=== PATIENT | female | born 1950 | race Caucasian/White ===

== ENCOUNTER 2020-11-22 14:16 | Inpatient (IN) | payer MEDICARE, OTHER ==
[~2020-11-22] VITALS: Ht 167.6 cm; Wt 68.2 kg
[2020-11-22] MEDS ORDERED: normal saline 1000ML IV soln IVB ONE (14:55)
[2020-11-22] MEDS ORDERED: methylPREDNISolone sod succ 125mg/2ml vial IV ONE (15:00)
[2020-11-22] MEDS ORDERED: ipratropium/albuterol 3ml nebule NEB ONE (15:00)
[2020-11-22 15:34] LABS: BASOPHILS % (AUTO) 0.2 % (0-1); EOSINOPHILS # (AUTO) 0.1 X10'3 (0-0.9); EOSINOPHILS % (AUTO) 0.5 % (0-6); HEMATOCRIT 40.8 % (35.0-45.0); HEMOGLOBIN 13.9 g/dl (12.0-16.0); LYMPHOCYTES # (AUTO) 0.8 X10'3 (1.1-4.8); MEAN CORPUSCULAR VOLUME 97.1 FL (78-98); MEAN PLATELET VOLUME 6.8 FL (7.4-10.4); MONOCYTES # (AUTO) 1.1 X10'3 (0-0.9); MONOCYTES % (AUTO) 8.4 % (2-12); NEUTROPHILS # (AUTO) 11.5 X10'3 (1.8-7.7); NEUTROPHILS % (AUTO) 84.9 % (42-75); PLATELET COUNT 401 X10'3 (140-440); RED CELL DISTRIBUTION WIDTH 13.1 % (11.5-14.5); WHITE BLOOD COUNT 13.6 X10'3 (4.5-11.0)
[2020-11-22 15:49] LABS: D-DIMER 0.92 MG/L FEU (0-0.50)
[2020-11-22 15:52] LABS: ALANINE AMINOTRANSFERASE 17 U/L (12-78); ALBUMIN 3.2 G/DL (3.4-5.0); ALKALINE PHOSPHATASE 88 IU/L (46-116); ANION GAP 6 (8-16); ASPARTATE AMINO TRANSFERASE 19 U/L (10-37); BILIRUBIN,TOTAL 0.8 MG/DL (0.1-1.0); BLOOD UREA NITROGEN 6 MG/DL (7-18); BUN/CREATININE RATIO 9.1 (6.6-38.0); CHLORIDE 101 MMOL/L (99-107); CREATININE 0.66 MG/DL (0.40-0.90); GLUCOSE 95 MG/DL (70-104); SODIUM 134 MMOL/L (135-145); TOTAL PROTEIN 6.5 G/DL (6.4-8.2); eGFR 89 ML/MIN
[2020-11-22] MEDS ORDERED: cloNIDine 0.1 mg tablet PO ONE (16:35)
[2020-11-22] MEDS ORDERED: iohexol 350MG/ML 100ml bottle IV ONE (17:25)
[2020-11-22] MEDS ORDERED: CefTRIAXone 2gm/D5W 50ml BAG 50 ML IV ONE (19:35)
[2020-11-22] MEDS ORDERED: albuterol 2.5 MG/3 ML nebule NEB ONE (19:45)
[2020-11-22] MEDS ORDERED: HYDROcodone/acetaminophen 10/325mg tab PO PRN (20:55)
[2020-11-22] MEDS ORDERED: ondansetron/PF 4mg/2ml inj IV PRN (20:55)
[2020-11-22] MEDS ORDERED: magnesium 4gm in 100ml NS 100 ML IV PRN (20:55)
[2020-11-22] MEDS ORDERED: magnesium 2GM in 50ml NS 50 ML IV PRN (20:55)
[2020-11-22] MEDS ORDERED: acetaminophen 325mg tablet PO PRN ×2 (20:55)
[2020-11-22] MEDS ORDERED: HYDROcodone/acetaminophen 5mg/325mg tablet PO PRN (20:55)
[2020-11-22] MEDS ORDERED: potassium Cl 40MEQ/1/2NS 520ml 520 ML IV PRN ×2 (20:55)
[2020-11-22] MEDS ORDERED: potassium Cl 20 mEq SR tablet PO PRN ×2 (20:55)
[2020-11-22] MEDS ORDERED: ipratropium/albuterol 3ml nebule NEB PRN (20:55)
[2020-11-22] MEDS ORDERED: BUSP10TA11 PO (21:32)
--- NOTE | 2020-11-22 22:26 | NUR ---
Patient in room ED 13. I have received report from Catalina SEXTON and had the opportunity to ask questions and assume patient care.
[2020-11-22 23:00] VITALS: BP 158/72
[2020-11-22] MEDS: normal saline 1000ml 1,000 ML IV SCH (23:13)
[2020-11-23 06:01] LABS: BASOPHILS % (AUTO) 0 % (0-1); EOSINOPHILS % (AUTO) 0 % (0-6); HEMATOCRIT 38.1 % (35.0-45.0); LYMPHOCYTES # (AUTO) 0.6 X10'3 (1.1-4.8); LYMPHOCYTES % (AUTO) 8.2 % (21-51); MEAN CORPUSCULAR HEMOGLOBIN 33.3 PG (27.0-31.0); MEAN CORPUSCULAR VOLUME 97.9 FL (78-98); MEAN PLATELET VOLUME 7.2 FL (7.4-10.4); MONOCYTES # (AUTO) 0.3 X10'3 (0-0.9); MONOCYTES % (AUTO) 3.3 % (2-12); NEUTROPHILS # (AUTO) 6.8 X10'3 (1.8-7.7); NEUTROPHILS % (AUTO) 88.5 % (42-75); PLATELET COUNT 407 X10'3 (140-440); RED BLOOD COUNT 3.89 X10'6 (4.20-5.60); WHITE BLOOD COUNT 7.7 X10'3 (4.5-11.0)
[2020-11-23 06:15] LABS: ALANINE AMINOTRANSFERASE 10 U/L (12-78); ALBUMIN 2.9 G/DL (3.4-5.0); ALBUMIN/GLOBULIN RATIO 0.9 (1.1-1.5); ALKALINE PHOSPHATASE 71 IU/L (46-116); ANION GAP 9 (8-16); ASPARTATE AMINO TRANSFERASE 17 U/L (10-37); BILIRUBIN,TOTAL 0.5 MG/DL (0.1-1.0); BLOOD UREA NITROGEN 11 MG/DL (7-18); BUN/CREATININE RATIO 16.2 (6.6-38.0); CALCIUM 8.7 MG/DL (8.5-10.1); CHLORIDE 104 MMOL/L (99-107); CREATININE 0.68 MG/DL (0.40-0.90); GLUCOSE 141 MG/DL (70-104); MAGNESIUM 1.7 MG/DL (1.5-2.4); POTASSIUM 4.4 MMOL/L (3.5-5.1); SODIUM 139 MMOL/L (135-145); TOTAL CARBON DIOXIDE 26.4 MMOL/L (24-32); eGFR 86 ML/MIN
--- NOTE | 2020-11-23 06:25 | NUR ---
Problems reprioritized. Patient report given, questions answered & plan of care reviewed with Judith SEXTON.
[2020-11-23 06:59] VITALS: BP 162/76
[2020-11-23] MEDS: normal saline 1000ml 1,000 ML IV SCH (07:17)
[2020-11-23] MEDS ORDERED: pantoprazole 40mg Tablet.DR PO SCH (07:30)
[2020-11-23] MEDS ORDERED: methylPREDNISolone sod succ/PF 40mg inj. IV SCH (08:00)
[2020-11-23] MEDS ORDERED: busPIRone 15mg tablet PO SCH ×2 (08:00→21:00)
[2020-11-23] MEDS ORDERED: K and/or MAG REPLACEMENT MC SCH (08:00)
[2020-11-23] MEDS ORDERED: docusate sod 100mg capsule PO SCH (08:00)
[2020-11-23] MEDS: albuterol 2.5 MG/3 ML nebule NEB PRN ×2 (08:28→12:57)
[2020-11-23 09:44] VITALS: BP 149/61
[2020-11-23 11:21] VITALS: BP 137/60
--- NOTE | 2020-11-23 12:50 | NUR ---
Pt. reports SOB after ambulating 300ml on RA. SA02 97% ON RA. PAGED RT FOR TX.
--- NOTE | 2020-11-23 13:38 | NUR ---
Notified Lynne in Case Management to assist patient in getting connected to [facility] with PMD.
[2020-11-23] MEDS ORDERED: PRED10TA23 PO (14:35)
[2020-11-23] MEDS ORDERED: BUDE10.22 INH (14:35)
[2020-11-23] MEDS ORDERED: ALBU8.5H8 INH (14:35)
[2020-11-23] MEDS ORDERED: CEFD300C3 PO (14:35)
[2020-11-23] MEDS ORDERED: PANT40TA54 PO (14:35)
--- NOTE | 2020-11-23 15:20 | NUR ---
Reviewed discharge paperwork with pt. She is aware of her f/u care. 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 Educated pt. on how to use an inhaler. Discussed discharge medication and possible ASE. She knows to pickle sorter medications at her preferred pharmacy. Medications have been e-scripted. Pt. knows to return to nearest ER if problems persist or she has any concerns regarding her respiratory status. She has called her to pick her up. IV still in place.
[2020-11-23] MEDS ORDERED: enoxaparin 40mg/0.4ml syringe SQ SCH (20:00)
--- NOTE | 2020-11-24 14:46 | NUR ---
CASE MANAGEMENT DISCHARGE FOLLOW UP: Spoke with pt via telephone. Reports that she is doing okay; upon enquiry as to whether she is breathing easier or not pt states "yes and no", states if she is not exerting herself she is doing okay. When she feels that she can't catch her breath she states that she starts feeling very anxious, is working on controlling anxiety related to SOB/dyspnea. Pt denies CP, dizziness, weakness, swelling, fever/chills. Verbalizes understanding of s/sx requiring further evaluation/emergent assistance. Verbalizes understanding of new and current medications, states that medications were explained very well for her at the hospital, states that inhalers are helping quite a bit with SOB/dyspnea. Verbalizes compliance with MD discharge instructions. Verbalizes understanding of the importance in making/keeping follow-up appointments, will follow up with [facility] as well as replenishment specialist, provided pt with number for [facility]. Upon enquiry, states that she is very pleased with care received while at hospital. States no further questions/concerns at this time.
== END 2020-11-23 15:49 | disposition home or self-care (01) | DRG 191 ==
LOC: ER 14:17 → ED HOLD 20:54 → SUR 3N 22:40
PROVIDERS: ADMIT Family Medicine; ATTEND Family Medicine
PROC: B32T1ZZ Computerized Tomography (CT Scan) of Left Pulmonary Artery using Low Osmolar Contrast (ICD-10-PCS; principal; 2020-11-22)
PROC: B3201ZZ Computerized Tomography (CT Scan) of Thoracic Aorta using Low Osmolar Contrast (ICD-10-PCS; 2020-11-22)
PROC: B32S1ZZ Computerized Tomography (CT Scan) of Right Pulmonary Artery using Low Osmolar Contrast (ICD-10-PCS; 2020-11-22)
DX: J44.1 Chronic obstructive pulmonary disease with (acute) exacerbation (principal); E87.1 Hypo-osmolality and hyponatremia; R09.02 Hypoxemia; F41.1 Generalized anxiety disorder; Z82.49 Family history of ischemic heart disease and other diseases of the circulatory system; Z90.710 Acquired absence of both cervix and uterus; Z79.899 Other long term (current) drug therapy; Z87.891 Personal history of nicotine dependence
CPT/HCPCS: 36415; 71045; 71275; 80053; 83605; 83735; 83880; 84145; 84484; 85025; 85379; 87040; 87081; 93005; 94640; 94760; 96361; 96365; 96375; 99285; G0378; J0696; J2920; J2930; J7030; Q9967

== ENCOUNTER 2021-02-06 08:19 | Emergency (ER) | payer MEDICARE ==
[~2021-02-06] VITALS: Ht 167.6 cm; Wt 61.4 kg
[~2021-02-06 08:19] MED LIST: ALBU8.5H8 INH; BUDE10.22 INH; BUSP10TA11 PO; PANT40TA54 PO
[2021-02-06] MEDS ORDERED: dexamethasone sod phosphate 10mg/ml inj IV STA (09:17)
[2021-02-06] MEDS ORDERED: famotidine/PF 10 mg/ml inj IV ONE (09:20)
[2021-02-06] MEDS ORDERED: diphenhydrAMINE 50 mg/ml inj IV ONE (09:20)
[2021-02-06] MEDS ORDERED: PRED20TA PO (09:24)
[2021-02-06] MEDS ORDERED: HYDR-3686 PO (09:32)
[2021-02-06 11:02] VITALS: BP 150/67
== END 2021-02-06 11:05 | disposition home or self-care (01) ==
LOC: ER 08:19
DX: L29.9 Pruritus, unspecified (principal); T43.225A Adverse effect of selective serotonin reuptake inhibitors, initial encounter; Z79.899 Other long term (current) drug therapy; Y92.89 Other specified places as the place of occurrence of the external cause
CPT/HCPCS: 96374; 96375; 99284; J1100; J1200; J3490

== ENCOUNTER 2023-08-15 18:31 | Emergency (ER) | payer MEDICARE ==
[~2023-08-15] VITALS: Ht 165.1 cm; Wt 65.5 kg
[~2023-08-15 18:31] MED LIST changes: -ALBU8.5H8 INH; +AMIT50TA15 PO; +BUDE0.5A3 NEB; -BUDE10.22 INH; -BUSP10TA11 PO; +BUSP15TA7 PO; +DOCU-148 PO; +EMPA10TA PO; +FLUO20CA39 PO; +FLUT1BLS4 INH; +FURO-150 PO; +LOSA50TA64 PO; +METO-395 PO; +OMEP40CA21 PO; +POTA-192 PO; +PRED10TA23 PO
[2023-08-15 19:34] VITALS: BP 140/79; PULSE 100; RESP 19; TEMP 97.8; O2SAT 96
[2023-08-15] MEDS ORDERED: LORazepam 1 MG tablet PO ONE (20:40)
[2023-08-15] MEDS ORDERED: HYDR-3686 PO (20:47)
== END 2023-08-15 21:04 | disposition home or self-care (01) ==
LOC: ER 18:32
DX: F41.9 Anxiety disorder, unspecified (principal); Z79.899 Other long term (current) drug therapy
CPT/HCPCS: 99283

== ENCOUNTER 2023-10-05 22:01 | Emergency (ER) | payer MEDICARE ==
[~2023-10-05] VITALS: Ht 170.2 cm; Wt 63.6 kg
[~2023-10-05 22:01] MED LIST changes: -PRED10TA23 PO
[2023-10-06] MEDS: LIDOcaine 1% W/epiNEPHrine 1:100,000 20ml vial IJ ONE (00:17)
[2023-10-06] MEDS: LIDOcaine 1% W/epiNEPHrine 1:200,000 10ml vial IJ ONE (00:17)
[2023-10-06 01:15] VITALS: BP 148/76; PULSE 68; RESP 18; TEMP 98; O2SAT 98
== END 2023-10-06 01:17 | disposition home or self-care (01) ==
LOC: ER 22:01
DX: L76.22 Postprocedural hemorrhage of skin and subcutaneous tissue following other procedure (principal)
CPT/HCPCS: 12001; 99282; 99283; A6446; A6449